=== PATIENT | female | born 1970 | race Caucasian/White ===

== ENCOUNTER 2016-05-14 05:50 | Day surgery (SDC) | payer BC ==
[2016-05-13 10:38] VITALS: BMI 25.4
[2016-05-14] VITALS (11 sets, daily range): BP systolic 100–116; BP diastolic 56–66; PULSE 72–86; RESP 9–22; Ht 152.4 cm; Wt 58.0 kg
[~2016-05-14] VITALS: Ht 152.4 cm; Wt 58.0 kg
[2016-05-14] MEDS ORDERED: CEFAZOLIN 2 GM/50 ML (PMX) 50 ML IVPB ONE (08:00)
[2016-05-14] MEDS ORDERED: SOD CHLORIDE 0.9% 1,000 ML IV SCH (08:00)
[2016-05-14] MEDS ORDERED: BUPIVACAINE 0.25% (MPF) 30 ML INJ ONE (08:52)
[2016-05-14] MEDS ORDERED: EPHEDrine SULFATE 50 MG/5 ML SYG IV PRN (09:30)
[2016-05-14] MEDS ORDERED: hydrALAzine 20 MG INJ IV PRN (09:30)
[2016-05-14] MEDS ORDERED: morphine (1 MG/ML) 10ML SYRINGE IV PRN ×3 (09:30)
[2016-05-14] MEDS ORDERED: DIPHENHYDRAMINE 50 MG INJ IV PRN (09:30)
[2016-05-14] MEDS ORDERED: MIDAZOLAM 1 MG/ML 2 ML INJ IV PRN (09:30)
[2016-05-14] MEDS ORDERED: LABETALOL HCL 20MG INJ IV PRN (09:30)
[2016-05-14] MEDS ORDERED: ONDANSETRON 4 MG INJ IV PRN (09:30)
[2016-05-14] MEDS ORDERED: FENTAnyl 50 MCG/ML VIAL IV PRN ×2 (09:30)
[2016-05-14] MEDS ORDERED: OXYCODONE/ACETAMINOPHEN (5/325) TAB PO PRN ×2 (09:30)
[2016-05-14] MEDS ORDERED: ATROPINE 1 MG/10 ML SYRINGE IV PRN (09:30)
[2016-05-14] MEDS ORDERED: MEPERIDINE 25 MG INJ IV PRN (09:30)
[2016-05-14] MEDS ORDERED: HYDROmorphONE (0.2 MG/ML) 10ML SYG IV PRN ×3 (09:30)
[2016-05-14] MEDS ORDERED: LIDOCAINE 2% (SDV) 5 ML INJ ONE (09:33)
[2016-05-14] MEDS ORDERED: FENTAnyl 50 MCG/ML VIAL ONE (09:33)
[2016-05-14] MEDS ORDERED: ROCURONIUM 50 MG INJ ONE (09:33)
[2016-05-14] MEDS ORDERED: PROPOFOL 20 ML ONE (09:33)
[2016-05-14] MEDS ORDERED: MIDAZOLAM 1 MG/ML 2 ML INJ ONE (09:33)
[2016-05-14] MEDS ORDERED: NEOSTIGMINE 3 MG/3 ML SYRINGE ONE (09:33)
[2016-05-14] MEDS ORDERED: GLYCOPYRROLATE 0.4 MG INJ ONE (09:33)
[2016-05-14] MEDS ORDERED: SUCCINYLCHOLINE CHLORIDE 100 MG/5 ML SYG IV ONE (09:34)
[2016-05-14 10:06] LABS: BASOPHILS % 0.8 % (0.0-2.0); EOSINOPHILS # 0.1 10^3/ul (0.0-0.5); EOSINOPHILS % 1.7 % (0.0-7.0); HEMOGLOBIN 11.5 g/dl (12.0-16.0); LYMPHOCYTES # 1.7 10^3/ul (0.8-2.9); MEAN CORPUSCULAR HEMOGLOBIN 29.4 pg (29.0-33.0); MEAN CORPUSCULAR HGB CONC 33.9 g/dl (32.0-37.0); MEAN CORPUSCULAR VOLUME 86.7 fl (82.0-101.0); MEAN PLATELET VOLUME 10.4 fl (7.4-10.4); MONOCYTE # 0.3 10^3/ul (0.3-0.9); MONOCYTES % 6.2 % (0.0-11.0); NEUTROPHIL # 3.5 10^3/ul (1.6-7.5); NEUTROPHILS % 61.3 % (39.0-77.0); PLATELET COUNT 300 10^3/UL (140-440); RED BLOOD COUNT 3.92 10^6/ul (4.20-5.40); RED CELL DISTRIBUTION WIDTH 13.2 % (11.5-14.5); UNCORRECTED WBC 5.7 10^3/ul (4.8-10.8); WHITE BLOOD COUNT 5.7 10^3/ul (4.8-10.8)
[2016-05-14 10:11] LABS: CONDITION 1; INR 0.95; PROTIME 12.7 Sec (12.2-14.2)
[2016-05-14 10:12] LABS: PARTIAL THROMBOPLASTIN TIME 26.3 Sec (25.0-35.0)
[2016-05-14 10:21] LABS: CALCIUM 8.7 mg/dl (8.4-10.2); CREATININE 0.48 mg/dl (0.44-1.00); POTASSIUM 3.8 mmol/L (3.5-5.1)
[2016-05-14] MEDS ORDERED: ONDANSETRON 4 MG INJ ONE (10:39)
[2016-05-14] MEDS ORDERED: BUPIVACAINE 0.25% (STERILE-PAK) 30 ML INJ INJ ONE (11:18)
[2016-05-14] MEDS ORDERED: HYDROCODONE/APAP (5/325) TAB PO ONE (11:30)
--- NOTE | 2016-05-14 13:04 | OPR ---
DATE OF OPERATION: 05/14/2016 INDICATION: This is a 45-year-old female with a left breast lesion. She requests surgical excision . Risks, alternatives, benefits, and personnel were discussed with the patient. The patient expres sed understanding and consents to the operation. PREOPERATIVE DIAGNOSIS: Left breast lesion. POSTOPERATIVE DIAGNOSIS: Left breast lesion. OPERATION PERFORMED: 1. Left needle localized breast biopsy with 5 cm size incision and 5 cm size mass. 2. Localized adjacent tissue transfer with the use of skin flaps. SURGEON: Elena Boston MD SPECIMEN: Left needle localized breast biopsy. COMPLICATIONS: None. ANESTHESIA: General. PROCEDURE: The patient was taken to the OR and prepped and draped in usual sterile fashion. Surgic al timeout was performed. IV antibiotics were given. Left superior aspect of the periareolar area was incised with a 15 blade. Dissection cautery was carried down to the lesion after reviewing radi ographic imaging. Dissection cautery was carried down circumferentially around the needle localizat ion site. There was good hemostasis. The specimen was excised. Irrigation was used. There was go od hemostasis. Due to the large tissue defect, multilayer closure with use of skin flaps was closed . Closure was with interrupted 3-0 Vicryl and running 4-0 Monocryl. Local anesthesia was injected. Dry dressings were applied. Dictated By: ELENA SHAH/JULIETA Conf#: [id number] DID#: [id number]
== END 2016-05-14 11:30 | disposition home or self-care (01) ==
LOC: SDS 05:50
PROVIDERS: ATTEND Surgery
DX: N60.92 Unspecified benign mammary dysplasia of left breast (principal)
CPT/HCPCS: 14000; 19125; 80048; 85025; 85610; 85730; 88307; J0330; J1170; J2250; J2405; J2710; J3010; Z7512; Z7610